=== PATIENT | male | born 1955 | race Caucasian/White ===

== ENCOUNTER 2021-09-25 16:00 | Emergency (ER) | payer OTHER, SELFPAY ==
[2021-09-25 16:21] VITALS: BP 150/90; PULSE 104; RESP 16; TEMP 37.1; O2SAT 97
[2021-09-25 16:34] LABS: Basophils Absolute Auto 0.1 K/mm3 (0.0-0.1); Basophils Percent Auto 0.6 % (0.2-1.2); Eosinophils Percent Auto 0.2 % (0-4.4); Hematocrit 48.9 % (42.0-52.0); Hemoglobin 16.4 g/dL (14.0-18.0); Immature Granulocyte Absolute 0.02 K/mm3 (0.00-0.031); Immature Granulocyte Percent A 0.2 % (0-0.5); Lymphocytes Percent Auto 17.2 % (18.3-44.2); Mean Corpuscular HGB Conc 33.5 g/dl (32-36); Mean Corpuscular Volume 95.5 fl (80-100); Mean Platelet Volume 8.7 fl (7.4-10.4); Monocytes Absolute Auto 0.6 K/mm3 (0.1-0.6); Monocytes Percent Auto 6.5 % (2.6-8.5); Neutrophils Percent Auto 75.3 % (45.5-73.1); Platelet Count Result 314 k/mm3 (150-375); Red Blood Count 5.12 M/mm3 (4.6-6.20); Red Cell Distribution Width 12.8 % (11.5-14.5); White Blood Count 9.3 K/mm3 (4.5-10.0)
[2021-09-25 16:45] LABS: INR 1.1; Prothrombin Time 13.6 Seconds (11.1-14.7)
[2021-09-25 16:46] LABS: Partial Thromboplastin Time 29.1 SECONDS (22.3-36.8)
[2021-09-25 16:48] LABS: Alanine Aminotransferase 25 U/L (4-50); Albumin Level 4.7 g/dL (3.5-5.1); Alkaline Phosphatase 71 U/L (38-126); Anion Gap 7 mmol/L (8-16); Aspartate Amino Transferase 37 U/L (17-59); Bilirubin,Total 0.6 mg/dL (0.2-1.3); Blood Urea Nitrogen 13 mg/dL (9-20); Calcium 9.4 mg/dL (8.4-10.2); Carbon Dioxide 32 mmol/L (22-30); Chloride 100 mmol/L (98-107); Estimated CRCL calculation 68 ml/min; Estimated Glomerular Filt Rate > 60; Glucose 119 mg/dL (65-110); Potassium 3.7 mmol/L (3.4-5.0); Sodium 139 mmol/L (137-145)
[2021-09-25 20:00] VITALS: BP 137/90; PULSE 90; RESP 16; O2SAT 99
--- NOTE | 2021-09-25 21:09 | ED.GIBLEED ---
HPI - GI Bleed General Chief complaint: GI Bleed Stated complaint: GI bleeding Time Seen by Provider: 09/25/21 19:49 History of Present Illness HPI Narrative: Patient is a 66-year-old male who was referred to the ER from his PCPs office for concern of GI bleeding. 5 days ago patient had abdominal cramping and diarrhea. She noticed a small spot of blood in the toilet. He then did not have a bowel movement for 3 more days. He then started having abdominal cramping again and he took some Kaopectate and then had a dark black stool later in the day. No dizziness or loss consciousness. No fevers or chills or sweats. Prilosec used at home. Denies daily NSAID use. Related Data Allergies Allergy/AdvReac Type Severity Reaction Status Date / Time Penicillins Allergy Unknown Nausea and Verified 05/27/17 15:22 Vomiting Review of Systems Review of Systems: All systems reviewed & are unremarkable except as noted in HPI and below Constitutional: Constitutional: Denies chills, Denies fever(s) and Denies weakness ENT: Denies nasal congestion and Denies sore throat Cardiovascular: Cardiovascular: Denies chest pain, Denies rapid heart rate and Denies radiating jaw, neck or arm pain Respiratory: Respiratory: Denies cough and Denies dyspnea Gastrointestinal: Gastrointestinal: Reports abdominal pain, Reports diarrhea, Denies nausea and Denies vomiting Neurologic: Denies syncope PMFSH Past Medical History Medical History (Updated 09/25/21 @ 21:17 by Arturo Phillips MD) Gastric ulcer Hypercholesterolemia Surgical History Surgical History (Updated 09/25/21 @ 21:12 by Arturo Phillips MD) History of esophagogastroduodenoscopy (EGD) Exam Narrative: GENERAL: Well-appearing, well-nourished, and in no acute distress. HEAD: Normocephalic, atraumatic. CHEST: Clear to auscultation. No respiratory distress. HEART: Regular rate and rhythm. Normal peripheral pulses. ABDOMEN: Soft, nontender, nondistended. Guaiac negative stool on MIGUEL. No gross blood. EXTREMITIES: Normal range of motion. No edema. SKIN: Warm, dry, no rash. NEURO: Alert and oriented x3. PSYCH: Normal mood and affect. Course Course Emergency Course: No blood in stool. Normal hemoglobin and vital signs. Dark stools felt related to Kaopectate. Discharge home. Vital Signs Vital signs: Vital Signs Temperature 98.7 F 09/25/21 16:21 Pulse Rate 104 H 09/25/21 16:21 Respiratory Rate 16 09/25/21 16:21 Blood Pressure 150/90 H 09/25/21 16:21 Pulse Oximetry 97 09/25/21 16:21 Temperature 98.7 F 09/25/21 16:21 Pulse Rate 104 H 09/25/21 16:21 Respiratory Rate 16 09/25/21 16:21 Blood Pressure 150/90 H 09/25/21 16:21 Pulse Oximetry 97 09/25/21 16:21 MDM - GI Bleed Lab Data Result diagrams: 09/25/21 16:26 09/25/21 16:26 Labs: Lab Results 09/25/21 09/25/21 09/25/21 Range/Units 16:26 16:26 16:26 WBC 9.3 (4.5-10.0) K/mm3 RBC 5.12 (4.6-6.20) M/mm3 Hgb 16.4 (14.0-18.0) g/dL Hct 48.9 (42.0-52.0) % MCV 95.5 (80-100) fl MCH 32.0 (26-34) pg MCHC 33.5 (32-36) g/dl RDW 12.8 (11.5-14.5) % Plt Count 314 (150-375) k/mm3 MPV 8.7 (7.4-10.4) fl Immature Gran % (Auto) 0.2 (0-0.5) % Neut % (Auto) 75.3 H (45.5-73.1) % Lymph % (Auto) 17.2 L (18.3-44.2) % [place] % (Auto) 6.5 (2.6-8.5) % Eos % (Auto) 0.2 (0-4.4) % Baso % (Auto) 0.6 (0.2-1.2) % Lymph # (Auto) 1.60 (0.9-3.2) K/mm3 [place] # (Auto) 0.6 (0.1-0.6) K/mm3 Eos # (Auto) 0.0 (0-0.3) K/mm3 Baso # (Auto) 0.1 (0.0-0.1) K/mm3 Abs Immat Gran (auto) 0.02 (0.00-0.031) K/mm3 Absolute Neuts (auto) 7.0 H (1.3-6.7) K/mm3 Absolute Nucleated RBC 0.0 (0.0-0.012) K/mm3 Nucleated RBC % 0.0 (0.0-0.2) % PT 13.6 (11.1-14.7) Seconds INR 1.1 APTT 29.1 (22.3-36.8) SECONDS Sodium 139 (137-145) mmol/L Potassium 3.7 (3.4-5.0) mmol/L Ch
[2021-09-25 21:30] VITALS: BP 137/90; PULSE 96; RESP 16; O2SAT 99
== END 2021-09-25 21:30 | disposition home or self-care (01) ==
PROVIDERS: Emergency Provider Emergency Medicine
DX: R19.7 Diarrhea, unspecified (principal); R19.5 Other fecal abnormalities; E78.00 Pure hypercholesterolemia, unspecified
CPT/HCPCS: 36415; 80053; 85025; 85610; 85730; 86850; 86900; 86901; 99283

== ENCOUNTER 2021-11-20 01:11 | Day surgery (SDC) | payer OTHER, SELFPAY ==
[2021-11-04 14:55] VITALS: BMI 26.5
[2021-11-20 10:08] VITALS: BP 151/90; PULSE 86; RESP 18; TEMP 36.9; O2SAT 96
--- NOTE | 2021-11-20 10:15 | WPDHPUPDATE1 ---
History and Physical Update Update Date/Time: 11/20/21 10:15 History and Physical has been reviewed, including an updated exam of the patient. There are NO changes in the patient's condition. Risks, benefits, and alternatives have been discussed and questions answered. Patient agrees to proceed with procedure.
--- NOTE | 2021-11-20 10:20 | P.PNAN_ITS ---
Anes - Initial Pre Proc Eval Procedure: Operation Date: 11/20/21 11:00 Proposed Procedures p Esophagogastroduodenoscopy & Colonoscopy - Kvng Funk MD Date/Time: 11/20/21 10:20 Surgeon: Kvng Funk MD Pre Op Diagnosis: lower abdominal pain, Carroll's Esophagus Patient Data Age: 66 Gender: M Height: 1.78 m Weight: 84.3 kg Last Vital Signs Temp 36.9 C 11/20/21 10:08 Pulse 86 11/20/21 10:08 Resp 18 11/20/21 10:08 BP 151/90 H 11/20/21 10:08 Pulse Ox 96 11/20/21 10:08 O2 Del Method Room Air 11/20/21 10:08 Allergies Allergy/AdvReac Type Severity Reaction Status Date / Time Penicillins AdvReac Unknown Nausea and Verified 11/20/21 10:06 Vomiting Home Medications Medication Instructions Recorded Confirmed Type amlodipine 10 mg tablet 10 mg PO DAILY 10/22/21 11/20/21 History hydrochlorothiazide 25 mg tablet 25 mg PO DAILY 10/22/21 11/20/21 History multivitamin (Daily Multi-Vitamin 1 tablet PO DAILY 10/22/21 11/20/21 History tablet) omeprazole 40 mg capsule,delayed 40 mg PO DAILY 10/22/21 11/20/21 History release polyethylene glycol 1 ea miscellaneous ONCE 10/22/21 11/20/21 History simvastatin 20 mg/5 mL (4 mg/mL) 20 mg PO DAILY 10/22/21 11/20/21 History oral suspension Patient hx anesthesia problems: none Family hx anesthesia problems: none Results Review: All pre-operative results and documents have been reviewed as part of the pre- operative evaluation. PENDING SALE TO [facility] Past Medical History Medical History Carroll esophagus Gastric ulcer GERD (gastroesophageal reflux disease) History of peptic ulcer disease Hypercholesterolemia Hypertension Obesity Surgical History Surgical History History of esophagogastroduodenoscopy (EGD) Social History Social History Smoking packs per day: 1 Smoking cigarettes per day: 20.0 Years smoked: 40 Smoking pack-years: 40.00 Smoking status: Former smoker Tobacco type: cigarettes Alcohol intake: former Substance use: unknown Living arrangements: with family Gender identity (if verbalized by the patient): Male Anes - Eval Final PreProcedure Day of Procedure 11/20/21 10:20 Patient weight: overweight Heart: regular rate and rhythm Lungs: decreased breath sounds Airway: Mallampati scale class II Neurological: alert and oriented Last oral intake: >/= 8 hours ASA classification: III Emergent: no Anesthetic plan: proceed Anesthesia type and monitoring: general GIVS and standard monitoring Results Review: All pre-operative results and documents have been reviewed as part of the pre- operative evaluation. Informed Consent: The patient's anesthetic plan and its attendant risks and benefits were discussed with the patient/family/POA. Questions were solicited and answers provided to the satisfaction of the patient/family/POA.
[2021-11-20] MEDS: LACTATED RINGERS 1,000 ML 150 ML IV CONT (10:22)
[2021-11-20 11:19] VITALS: BP 89/62; PULSE 61; RESP 16; O2SAT 92
--- NOTE | 2021-11-20 11:25 | SUR.OPER ---
EGD: Start 10:56, End 10:59 Colon: Start 11:04, End 11:19
[2021-11-20 11:29] VITALS: BP 107/64; PULSE 65; RESP 17; O2SAT 97
[2021-11-20 11:39] VITALS: BP 116/64; PULSE 65; RESP 17; O2SAT 98
== END 2021-11-20 11:58 | disposition home or self-care (01) ==
PROVIDERS: Visit Provider Internal Medicine Gastroenterology
PROC: 0DJ08ZZ Inspection of Upper Intestinal Tract, Via Natural or Artificial Opening Endoscopic (ICD-10-PCS; CPT 43235; principal; 2021-11-20 11:00)
DX: K22.70 Barrett's esophagus without dysplasia (principal); R10.30 Lower abdominal pain, unspecified; D12.5 Benign neoplasm of sigmoid colon; K64.8 Other hemorrhoids; K21.00 Gastro-esophageal reflux disease with esophagitis, without bleeding; I10 Essential (primary) hypertension; E78.00 Pure hypercholesterolemia, unspecified; Z87.891 Personal history of nicotine dependence; R00.0 Tachycardia, unspecified; R10.9 Unspecified abdominal pain; K92.1 Melena; Z87.11 Personal history of peptic ulcer disease
CPT/HCPCS: 45385; 43239; 88305; J2704; J7120

== ENCOUNTER 2025-04-26 00:08 | Day surgery (SDC) | payer MEDICARE, OTHER, SELFPAY ==
[2025-04-05 12:00] VITALS: BMI 25.1
[2025-04-26 12:43] VITALS: BP 153/91; PULSE 93; RESP 18; TEMP 36.7; O2SAT 97; BMI 26.6
[2025-04-26] MEDS: LACTATED RINGERS 1,000 ML 150 ML IV CONT (12:46)
--- NOTE | 2025-04-26 13:21 | SUR.PREOP ---
pt and made aware that dr cardoso is behind schedule due to lengthy earlier procedures. will continue to udate, voiced understanding.
--- NOTE | 2025-04-26 14:32 | PM.IMHP2 ---
H&P: HPI History of Present Illness Date/Time: 04/26/25 14:32 Chief Complaint: History of Carroll's esophagus Narrative: The patient has a diagnosis of Carroll's esophagus and his last EGD was 3 years ago, showing short-segment with no dysplasia on biopsies. He is here today for surveillance EGD. Review of Systems Review of Systems: All systems reviewed & are unremarkable except as noted in HPI and below PMFSH Past Medical History Medical History Borborygmi Constipation Gas bloat syndrome Hypertension Obesity History of peptic ulcer disease Carroll esophagus GERD (gastroesophageal reflux disease) Gastric ulcer Hypercholesterolemia Surgical History Surgical History History of esophagogastroduodenoscopy (EGD) Social History Social History Smoking packs per day: 1 Smoking cigarettes per day: 20.0 Years smoked: 40 Smoking pack-years: 40.00 Smoking status: Never smoker Tobacco type: cigarettes Alcohol intake: former Substance use: unknown Substance use type: does not use Lack of Transportation: No Lack of Food: Never True Current Housing: I Have Housing Concerned About Future Housing: No Difficulty Paying Gas/Electric Bills: No Difficulty Paying for Meds: No Currently Unemployed: No Education: Decline to Answer Difficulty w/ Childcare or Family Care: No Living arrangements: with family Additional living arrangements comments: with sp Occupation/Education: retired Gender identity (if verbalized by the patient): Male Meds Home Medications and Allergies Home Medications ?Medication ?Instructions ?Recorded ?Confirmed ?Type multivitamin (Daily Multi-Vitamin 1 tablet PO DAILY 10/22/21 04/26/25 History tablet) amlodipine 10 mg tablet 10 mg PO DAILY #90 tabs 04/21/23 04/26/25 Rx hydrochlorothiazide 25 mg tablet 25 mg PO DAILY #90 tabs 04/21/23 04/26/25 Rx omeprazole 20 mg capsule,delayed 20 mg PO BID #180 caps 04/21/23 04/26/25 Rx release polyethylene glycol 3350 17 17 g PO DAILY #850 grams 04/21/23 04/26/25 Rx gram/dose oral powder simvastatin 20 mg tablet 20 mg PO DAILY #90 tabs 04/21/23 04/26/25 Rx Allergies Allergy/AdvReac Type Severity Reaction Status Date / Time Penicillins AdvReac Unknown Nausea and Verified 04/26/25 12:41 Vomiting Vital Signs Vital Signs - 24 hr 04/26/25 12:43 Temperature 98.0 F Pulse Rate 93 Respiratory Rate 18 Blood Pressure 153/91 H Pulse Oximetry 97 Oxygen Delivery Room Air Exam Const: General: cooperative and healthy appearing Resp: Effort & Inspection: normal respiratory effort and able to speak in complete sentences Auscultation: clear to auscultation bilaterally Cardio: Rate: regular rate Rhythm: regular rhythm GI: Inspection: normal to inspection GI Palp: No No hepatosplenomegaly present Auscultation: normal bowel sounds Rectal Exam: deferred Skin: General skin exam: normal color Psych: Appearance: grossly normal Mental Status: mental status grossly normal Assessment and Plan Assessment and plan (1) Carroll's esophagus determined by biopsy: Code(s): K22.70 - Carroll's esophagus without dysplasia Status: Acute Assessment and Plan: The patient is deemed a good candidate for the procedure. Consent signed. Will proceed. Prior Studies I have reviewed the following patient records and this information was taken into consideration when formulating the assessment and plan.: previous labs, previous ER visits, previous hospitalizations and previous clinic visits
--- NOTE | 2025-04-26 14:33 | WPDANESEPPF ---
Anes - Initial Pre Proc Eval Procedure: Operation Date: 04/26/25 13:30 Proposed Procedures p Esophagogastroduodenoscopy EGD - Micha Toney MD Date/Time: 04/26/25 14:33 Surgeon: Micha Toney MD Pre Op Diagnosis: GERD Patient Data Age: 70 Gender: M Height: 1.78 m Weight: 84.2 kg Last Vital Signs Temp 36.7 C 04/26/25 12:43 Pulse 93 04/26/25 12:43 Resp 18 04/26/25 12:43 BP 153/91 H 04/26/25 12:43 Pulse Ox 97 04/26/25 12:43 O2 Del Method Room Air 04/26/25 12:43 Allergies Allergy/AdvReac Type Severity Reaction Status Date / Time Penicillins AdvReac Unknown Nausea and Verified 04/26/25 12:41 Vomiting Home Medications ?Medication ?Instructions ?Recorded ?Confirmed ?Type multivitamin (Daily Multi-Vitamin 1 tablet PO DAILY 10/22/21 04/26/25 History tablet) amlodipine 10 mg tablet 10 mg PO DAILY #90 tabs 04/21/23 04/26/25 Rx hydrochlorothiazide 25 mg tablet 25 mg PO DAILY #90 tabs 04/21/23 04/26/25 Rx omeprazole 20 mg capsule,delayed 20 mg PO BID #180 caps 04/21/23 04/26/25 Rx release polyethylene glycol 3350 17 17 g PO DAILY #850 grams 04/21/23 04/26/25 Rx gram/dose oral powder simvastatin 20 mg tablet 20 mg PO DAILY #90 tabs 04/21/23 04/26/25 Rx Patient hx anesthesia problems: none Family hx anesthesia problems: none Results Review: All pre-operative results and documents have been reviewed as part of the pre-operative evaluation. [facility] Past Medical History Medical History Borborygmi Constipation Gas bloat syndrome Hypertension Obesity History of peptic ulcer disease Carroll esophagus GERD (gastroesophageal reflux disease) Gastric ulcer Hypercholesterolemia Surgical History Surgical History History of esophagogastroduodenoscopy (EGD) Social History Social History Smoking packs per day: 1 Smoking cigarettes per day: 20.0 Years smoked: 40 Smoking pack-years: 40.00 Smoking status: Never smoker Tobacco type: cigarettes Alcohol intake: former Substance use: unknown Substance use type: does not use Lack of Transportation: No Lack of Food: Never True Current Housing: I Have Housing Concerned About Future Housing: No Difficulty Paying Gas/Electric Bills: No Difficulty Paying for Meds: No Currently Unemployed: No Education: Decline to Answer Difficulty w/ Childcare or Family Care: No Living arrangements: with family Additional living arrangements comments: with sp Occupation/Education: retired Gender identity (if verbalized by the patient): Male Anes - Eval Final PreProcedure Day of Procedure 04/26/25 14:33 Patient weight: overweight Heart: regular rate and rhythm Lungs: decreased breath sounds Airway: Mallampati scale class II Neurological: alert and oriented Last oral intake: >/= 8 hours ASA classification: III Emergent: no Anesthetic plan: proceed Anesthesia type and monitoring: general GIVS and standard monitoring Results Review: All pre-operative results and documents have been reviewed as part of the pre-operative evaluation. Informed Consent: The patient's anesthetic plan and its attendant risks and benefits were discussed with the patient/family/POA. Questions were solicited and answers provided to the satisfaction of the patient/family/POA.
--- NOTE | 2025-04-26 14:44 | S_PTH ---
PATIENT: Tae Frank LOC: [facility] U#:[id number] AGE/SX: 70/M ROOM: RE04/26/[address]: Micha Toney MD : 1955 BED: DIS: 04/26/2025 SPEC #: [id number] RECD: 04/27/25 08:48 STATUS: MIRYAM REQ #: [id number] JAZZ: 04/26/25 14:[address]: Micha Toney DEPT: [facility] Surgical RECD BY: Kaelyn Rooney ENTERED: 04/27/25 08:49 SP TYPE: Surgical OTHR DR: Jerald Saravia, Tissues: A - Gastric Biopsy B - Gastric Biopsy C - Esophageal Biopsy Procedures: Hematoxylin and Eosin Stain Gross and Microscopic Level 4
[2025-04-26 14:51] VITALS: BP 107/65; PULSE 75; RESP 21; O2SAT 94
[2025-04-26 15:01] VITALS: BP 119/70; PULSE 71; RESP 25; O2SAT 96
[2025-04-26 15:11] VITALS: BP 113/76; PULSE 67; RESP 19; O2SAT 95
== END 2025-04-26 15:29 | disposition home or self-care (01) ==
PROVIDERS: PCP Internal Medicine; Referring Provider Nurse Practitioner Family; Visit Provider Internal Medicine Gastroenterology
PROC: 0DJ08ZZ Inspection of Upper Intestinal Tract, Via Natural or Artificial Opening Endoscopic (ICD-10-PCS; CPT 43239; principal; 2025-04-26 13:30)
DX: K22.70 Barrett's esophagus without dysplasia (principal); K21.9 Gastro-esophageal reflux disease without esophagitis; K44.9 Diaphragmatic hernia without obstruction or gangrene; K29.70 Gastritis, unspecified, without bleeding; Z87.891 Personal history of nicotine dependence
CPT/HCPCS: 43239; 88305; J2704; J7120